=== PATIENT | male | born 1960 | race Caucasian/White ===

== ENCOUNTER → 2024-10-15 | Outpatient (CLI) | payer MEDICARE, OTHER, SELFPAY ==
[2024-10-15 18:02] LABS: ALB/GLOB Ratio 1.1 RATIO (0.9-2.4); AST(SGOT) 11 U/L (15-37); Alanine Aminotransfer ALT/SGPT 22 U/L (16-61); Albumin, Serum 3.7 g/dL (3.2-5.0); Alkaline Phosphatase 53 U/L (45-117); Anion Gap 4 (5-15); BUN 16 mg/dL (7-18); BUN/Creat Ratio 14.7 RATIO (10-20); Calcium,Total 8.6 mg/dL (8.5-10.1); Chloride 105 mmol/L (98-107); Cholesterol 187 mg/dL (200); Creatinine, Serum 1.09 mg/dL (0.70-1.30); EST Glomerular Filtration Rate 72 mL/min (>60); Est Glom Filt Rate - Afr Amer 87 mL/min (>60); Globulin 3.3 g/dL (2.2-4.2); Glucose 104 mg/dL (74-106); High Density Lipoprotein 43 mg/dL; PSA,Total - Annual Screen 1.21 ng/mL (0.00-4.00); Potassium 3.8 mmol/L (3.5-5.1); Sodium Level 139 mmol/L (136-145); Triglycerides 200 mg/dL; Very Low Density Lipoprotein 40 mg/dL (5-40)
== END | disposition home or self-care (01) ==
LOC: MFPLAB 14:55
PROVIDERS: PCP Family Medicine; Visit Provider Family Medicine
DX: Z00.00 Encounter for general adult medical examination without abnormal findings (principal)
CPT/HCPCS: 36415; 80053; 80061; 84153; G0103

== ENCOUNTER → 2024-12-05 | Outpatient (CLI) | payer MEDICARE, OTHER, SELFPAY ==
[2024-12-05 15:38] LABS: ALB/GLOB Ratio 1.2 RATIO (0.9-2.4); AST(SGOT) 16 U/L (15-37); Alanine Aminotransfer ALT/SGPT 26 U/L (16-61); Albumin, Serum 3.9 g/dL (3.2-5.0); Alkaline Phosphatase 55 U/L (45-117); Anion Gap 4 (5-15); BUN 13 mg/dL (7-18); BUN/Creat Ratio 12.9 RATIO (10-20); Calcium,Total 9.3 mg/dL (8.5-10.1); Chloride 109 mmol/L (98-107); Creatinine, Serum 1.01 mg/dL (0.70-1.30); EST Glomerular Filtration Rate 79 mL/min (>60); Est Glom Filt Rate - Afr Amer 95 mL/min (>60); Globulin 3.3 g/dL (2.2-4.2); Glucose 111 mg/dL (74-106); Potassium 4.1 mmol/L (3.5-5.1); Protein, Total 7.2 g/dL (6.4-8.2); Sodium Level 140 mmol/L (136-145)
== END | disposition home or self-care (01) ==
LOC: MFPLAB 11:24
PROVIDERS: PCP Family Medicine; Referring Provider Family Medicine; Visit Provider Family Medicine
DX: R17 Unspecified jaundice (principal)
CPT/HCPCS: 36415; 80053

== ENCOUNTER → 2025-01-06 | Outpatient (CLI) | payer MEDICARE, OTHER, SELFPAY ==
--- NOTE | 2025-01-06 17:26 | RAD_ITS ---
PROCEDURE: RIBS UNIL 2V NO CXR REASON FOR EXAM: Pain midthoracic over rib TECHNIQUE: Frontal and bilateral oblique views of the bilateral ribs. COMPARISON: None. FINDINGS: No displaced rib fractures are identified. No suspicious lytic or blastic rib lesions. RAD/Ribs Unil 2V No CXR IMPRESSION: NO EVIDENCE OF ACUTE RIB FRACTURE OR PNEUMOTHORAX. Reading Location: [facility]
--- NOTE | 2025-01-06 17:32 | RAD_ITS ---
PROCEDURE: CHEST PA AND LATERAL REASON FOR EXAM: Rib pain on left side TECHNIQUE: Frontal and lateral views of the chest. COMPARISON: None. FINDINGS: The heart size is normal. The mediastinal contour is unremarkable. There are granulomatous calcifications. The lungs are otherwise clear. The bones are unremarkable. RAD/Chest PA and Lateral IMPRESSION: No radiographic evidence of acute cardiopulmonary disease Reading Location: [facility]
== END | disposition home or self-care (01) ==
LOC: MTRAD 17:26
PROVIDERS: PCP Family Medicine; Referring Provider Family Medicine; Visit Provider Family Medicine
DX: R07.89 Other chest pain (principal)
CPT/HCPCS: 71046; 71100